=== PATIENT | female | born 1985 | race Caucasian/White ===

== ENCOUNTER 2021-04-13 16:33 | Emergency (ER) | payer MEDICAID ==
[~2021-04-13] VITALS: Ht 167.6 cm; Wt 70.0 kg
[2021-04-13] MEDS ORDERED: BACITRACIN ZINC OINT UDPKT TOP ONE (17:00)
[2021-04-13] MEDS ORDERED: ACETAMINOPHEN 325MG TABLET PO ONE ×2 (17:00→18:45)
[2021-04-13] MEDS ORDERED: LIDOCAINE HCL/EPINEPHRINE 1%-EPI 1:100,000 20 ML VIAL INFIL ONE (17:00)
[2021-04-13] MEDS ORDERED: TETANUS, DIPHTHERIA, PERTUSSIS VAC/PF 0.5ML (>7YR OLD) IM ONE ×2 (17:00→18:45)
[2021-04-13] MEDS ORDERED: IBUPROFEN 400MG TABLET PO ONE (18:45)
[2021-04-13] MEDS ORDERED: TOPUD MT (18:57)
[2021-04-13] MEDS ORDERED: NAPR-1176 MT (19:15)
[2021-04-13 20:06] VITALS: BP 137/79
== END 2021-04-13 20:06 | disposition home or self-care (01) ==
LOC: ER 16:33
DX: S01.01XA Laceration without foreign body of scalp, initial encounter (principal); Y04.0XXA Assault by unarmed brawl or fight, initial encounter; Y93.89 Activity, other specified; Y92.89 Other specified places as the place of occurrence of the external cause; Y99.8 Other external cause status
CPT/HCPCS: 12002; 70450; 81025; 90471; 90715; 99285; J3490